=== PATIENT | male | born 1980 | race Two or more races ===

== ENCOUNTER 2023-07-05 17:20 | Emergency (ER) | payer BC ==
[2023-07-05] MEDS: Ketorolac 30 MG/ML SDV IVPUSH ONE (18:00)
[2023-07-05] MEDS: Sodium Chloride 0.9% 1,000 ML IV STA ×3 (18:00→20:12)
[2023-07-05] MEDS: VANCOMYCIN 2 GM/400 ML IV ONE (18:01)
[2023-07-05] MEDS: Piperacillin/Tazobactam 4.5 GM in Sodium Chloride 0.9% 100 ML IV STA (18:01)
[2023-07-05] MEDS: Acetaminophen 500 MG Tab PO ONE (18:01)
[2023-07-05 18:07] LABS: BASOPHILS ABSOLUTE AUTO 0.08 K/uL (0.00-0.20); BASOPHILS PERCENT AUTO 0.6 % (0.0-1.0); EOSINOPHILS ABSOLUTE AUTO 0.15 K/uL (0.00-0.45); EOSINOPHILS PERCENT AUTO 1.1 % (0.0-6.0); HEMATOCRIT 41.1 % (42.0-52.0); HEMOGLOBIN 14.1 g/dL (14.0-18.0); IMMATURE GRAN ABSOLUTE AUTO 0.06 K/uL (0.00-0.05); IMMATURE GRAN PERCENT AUTO 0.4 % (0.0-0.4); LYMPHOCYTES ABSOLUTE AUTO 1.67 K/uL (1.00-4.80); LYMPHOCYTES PERCENT AUTO 12.1 % (24.0-44.0); MEAN CORPUSCULAR HEMOGLOBIN 29.7 pg (28.0-32.0); MEAN CORPUSCULAR HGB CONC 34.3 g/dL (32.0-36.0); MEAN CORPUSCULAR VOLUME 86.5 fL (83.0-99.0); MEAN PLATELET VOLUME 10.4 fL (9.4-12.4); MONOCYTES ABSOLUTE AUTO 1.24 K/uL (0.00-0.80); NEUTROPHILS ABSOLUTE AUTO 10.59 K/uL (1.80-7.70); NEUTROPHILS PERCENT AUTO 76.8 % (41.0-71.0); PLATELET COUNT,PLT 160 K/uL (150-400); RED BLOOD CELL COUNT 4.75 M/uL (4.52-5.90); WHITE BLOOD CELL COUNT,WBC 13.79 K/uL (3.9-11.3)
[2023-07-05] MEDS ORDERED: VANCOmycin 2 GM/400 ML 400 ML IV ONE ×2 (18:07→18:09)
[2023-07-05 18:37] LABS: ALBUMIN 3.6 g/dL (3.4-5.0); BILIRUBIN TOTAL 0.5 mg/dL (0.2-1.0); C-REACTIVE PROTEIN 5.13 mg/dL (<0.3); CALCIUM 8.4 mg/dL (8.5-10.1); CARBON DIOXIDE,CO2 28.4 mmol/L (21.0-32.0); EST CRCL DRUG DOSING (CG) 102.49 mL/min; PROTEIN TOTAL,TP 7.2 g/dL (6.4-8.2)
[2023-07-05] MEDS: VANCOmycin 2 GM/400 ML 400 ML IV ONE (18:37)
[2023-07-05 18:42] LABS: LACTIC ACID 0.7 mmol/L (0.4-2.0)
[2023-07-05 18:50] LABS: HEMOGLOBIN A1C 5.8 %
[2023-07-05] MEDS: Oxymetazoline 0.05% Nasal Spray 30 ML Bottle NAS STA (18:52)
[2023-07-05] MEDS: Iopamidol 755 MG/ML 500 ML Multipack Bottle IVPUSH ONE (20:05)
[2023-07-05 20:21] LABS: APPEARANCE,URINE CLEAR; BILIRUBIN,URINE NEGATIVE (NEGATIVE); COLOR,URINE YELLOW; GLUCOSE,URINE NEGATIVE (NEGATIVE); KETONES,URINE NEGATIVE (NEGATIVE); LEUKOCYTE ESTERASE,URINE NEGATIVE (NEGATIVE); NITRITE,URINE NEGATIVE (NEGATIVE); OCCULT BLOOD,URINE NEGATIVE (NEGATIVE); PH,URINE 6.5 (5.0-8.0); PROTEIN,URINE NEGATIVE (NEGATIVE); UROBILINOGEN,URINE 0.2 EU/dL (<2.0)
[2023-07-05 21:08] LABS: BACTERIA,URINE RARE (NEGATIVE); EPITHELIAL CELLS,URINE RARE (NONE-FEW); RBC,URINE 0-1 (0-2/HPF); WBC,URINE 0-1 (0-5/HPF)
== END 2023-07-05 21:21 | disposition home or self-care (01) ==
LOC: MW.ED 17:20
DX: L03.317 Cellulitis of buttock (principal); Z79.899 Other long term (current) drug therapy
CPT/HCPCS: 36415; 74177; 80053; 81001; 83036; 83605; 85025; 85610; 86140; 87040; 96365; 96366; 96367; 96375; 99284; A9270; J1885; J2543; J3370; J3490; J7030; Q9967